=== PATIENT | male | born 1955 | race Caucasian/White ===

== ENCOUNTER 2018-08-30 18:09 | Emergency (ER) | payer BC ==
[2018-08-30] MEDS ORDERED: Tetan/Diph/Pertus SYR(Tdap)* 0.5 ML SYR(BOOSTRIX) use SYR IM ONE (19:30)
[2018-08-30] MEDS ORDERED: ceFAZolin 500 MG VIAL(*) 500 MG VIAL IM ONE (20:13)
[2018-08-30] MEDS ORDERED: Sterile Water for Inj* 10 ML ONE (21:16)
--- NOTE | 2018-08-30 21:32 | ED ---
Upper Extremity Pain - HPI Summary HPI Summary: Patient complains of right lower quadrant pain, N/V/D 3 days. Abdominal pain described as intermittent, at worst 8/10, worse with walking, sometimes worse with eating. No active symptoms here in the ED. Denies fever, cough, sore throat, CP, SOB, change in urine, penile or testicular symptoms. Medical history is none. Vaccinations up-to-date. Patient eating and drinking normally. - History of Current Complaint Chief Complaint: EDExtremityUpper Stated Complaint: SLAMMED DOOR ON INDEX FINGER PER PT Time Seen by Provider: 08/30/18 19:29 Hx Obtained From: Patient Mechanism Of Injury: Blunt Trauma Onset/Duration: Started Hours Ago Timing: Constant Severity Initially: Moderate Severity Currently: Moderate Pain Location: Finger Character: Aching, Throbbing Aggravating Factor(s): Movement Alleviating Factor(s): Nothing Associated Signs & Symptoms: Positive: Negative - Allergies/Home Medications Allergies/Adverse Reactions: Allergies Allergy/AdvReac Type Severity Reaction Status Date / Time No Known Allergies Allergy Verified 08/30/18 18:21 PMH/Surg Hx/FS Hx/Imm Hx Endocrine/Hematology History: Denies: Hx Anticoagulant Therapy Cardiovascular History: Denies: Hx Pacemaker/ICD History: Denies: Hx Dialysis Sensory History: Denies: Hx Legally Blind EENT History: Denies: Hx Deafness Psychiatric History: Denies: Hx Autism Infectious Disease History: No Infectious Disease History: Denies: Traveled Outside the [place] in Last 30 Days - Family History Known Family History: Positive: Non-Contributory - Social History Alcohol Use: None Substance Use Type: Reports: None Smoking Status (MU): Current Every Day Smoker Review of Systems Constitutional: Negative Eyes: Negative ENT: Negative Cardiovascular: Negative Respiratory: Negative Gastrointestinal: Negative Genitourinary: Negative Skin: Other Neurological: Negative Psychological: Normal All Other Systems Reviewed And Are Negative: Yes Physical Exam - Summary Physical Exam Summary: Obvious deformity to distal tip of right index finger. Laceration along the dorsal, medial and volar surface surface of distal finger. Apparent open fracture. No disturbance of nailbed however medial base of nail is visible. Triage Information Reviewed: Yes Vital Signs On Initial Exam: Initial Vitals Temp Pulse Resp BP Pulse Ox 99.5 F 78 18 164/91 98 08/30/18 18:18 08/30/18 18:18 08/30/18 18:18 08/30/18 18:18 08/30/18 18:18 Vital Signs Reviewed: Yes Appearance: Positive: Well-Appearing Skin: Positive: Warm Head/Face: Positive: Normal Head/Face Inspection Eyes: Positive: Normal Neck: Positive: Supple Respiratory/Lung Sounds: Positive: Clear to Auscultation Cardiovascular: Positive: Normal Abdomen Description: Positive: Nontender Musculoskeletal: Positive: Normal Neurological: Positive: Normal Psychiatric: Positive: Normal AVPU Assessment: Alert - Nash Coma Scale Best Eye Response: 4 - Spontaneous Best Motor Response: 6 - Obeys Commands Best Verbal Response: 5 - Oriented Coma Scale Total: 15 Procedures - Laceration/Wound Repair 1 Location: upper extremity - distal tip right index finger Description: Irregular Anesthesia: Digital, 1.0% Length, Depth and Shape: 6cm x 1.5cm Betadine Prep?: Yes Irrigated w/ Saline (ccs): 500 Laceration/Wound Explored: clean Closure: Skin Adhesive Debridement: minimal Number of Sutures: 10 - 4.0 prolene Layer Closure?: No Sterile Dressing Applied?: No Diagnostics - Vital Signs Vital Signs Temp Pulse Resp BP Pulse Ox 08/30/18 18:18 99.5 F 78 18 164/91 98 - Laboratory Lab Statement: Any lab studies that have been ordered have been reviewed, and results considered in the medical decision making process. Course/Dx - Course Course Of Treatment: Patient complains of right lower quadrant pain, N/V/D 3 days. Abdominal pain described as intermittent, at worst 8/10, worse with walking, sometimes worse with eating. No active symptoms here in the ED. Denies fever, cough, sore throat, CP, SOB, change in urine, penile or testicular symptoms. Medical history is none. Vaccinations up-to-date. Patient eating and drinking normally. Vital signs within normal limits. X-ray positive for kirk fracture. Wound cleaned and sutured. Distal bone element approximated. Finger splint administered by nurse. Ancef 500 mg IM administered. Tetanus booster administered. Rx for Keflex. - Diagnoses Provider Diagnoses: Open fracture of tuft of distal phalanx of finger, Laceration Discharge - Sign-Out/Discharge Documenting (check all that apply): Patient Departure Patient Received Moderate/Deep Sedation with Procedure: No - Discharge Plan Condition: Stable Disposition: HOME Prescriptions: Cephalexin CAP* [Keflex CAP*] 500 mg PO TID 10 Days #30 cap Patient Education Materials: Care For Your Stitches (ED), Finger Fracture (ED) , Finger Laceration (ED) Referrals: No Primary Care Phys,NOPCP [Primary Care Provider] - Additional Instructions: Sutures out in 10 days. Take antibiotics as directed. Starting tomorrow he may wash with warm running water and soap. Keep wound protected clean and dry when not washing. Follow-up with orthopedics for further evaluation when you get home to [place]. Return to the ED for any increase in swelling, redness, pus, pain. - Billing Disposition and Condition Condition: STABLE Disposition: Home
[2018-08-30 21:42] VITALS: BP 175/88
== END 2018-08-30 21:41 | disposition home or self-care (01) ==
LOC: ED 18:09
DX: S62.630B Displaced fracture of distal phalanx of right index finger, initial encounter for open fracture (principal); W23.0XXA Caught, crushed, jammed, or pinched between moving objects, initial encounter; Y92.9 Unspecified place or not applicable; Z23 Encounter for immunization
CPT/HCPCS: 12002; 73140; 90471; 90715; 96372; 99283; J0690